=== PATIENT | male | born 1995 | race Two or more races ===

== ENCOUNTER 2020-11-13 07:48 | Outpatient (CLI) | payer OTHER | END 2020-11-13 07:58 | disposition home or self-care (01) | LOC: LAB 07:48 | DX: Z03.818 Encounter for observation for suspected exposure to other biological agents ruled out (principal) ==

== ENCOUNTER 2020-12-03 11:53 | Outpatient (CLI) | payer OTHER | END 2020-12-03 11:55 | disposition home or self-care (01) | LOC: LAB 11:53 | PROVIDERS: ATTEND Pediatrics Neonatal-Perinatal Medicine | DX: R05 Cough (principal); Z03.818 Encounter for observation for suspected exposure to other biological agents ruled out; R06.02 Shortness of breath ==